=== PATIENT | female | born 1935 | race Caucasian/White ===

== ENCOUNTER 2018-05-24 18:38 | Emergency (ER) | payer MEDICARE, BC ==
[2018-05-24] MEDS ORDERED: Ibuprofen TAB* 400 MG PO ONE (18:45)
[2018-05-24 18:49] VITALS: BP 144/70
--- NOTE | 2018-05-24 18:50 | UC ---
Lower Extremity/Ankle HPI - HPI Summary HPI Summary: 83-year-old woman comes in today with a chief complaint of right foot and ankle pain. Bladder arrival today she tripped and fell. She injured her ankle and right foot laterally at the time. She has been able to walk on it however the pain has been getting worse. Pain is worse with ambulation. Better with rest. - History of Current Complaint Stated Complaint: R FOOT INJURY Time Seen by Provider: 05/24/18 18:45 - Allergies/Home Medications Allergies/Adverse Reactions: Allergies Allergy/AdvReac Type Severity Reaction Status Date / Time No Known Allergies Allergy Verified 05/24/18 18:49 Home Medications: Home Medications Ibuprofen TAB* [Motrin TAB* 400 MG] 400 mg PO DAILY 05/24/18 [History Confirmed 05/24/18] SUMAtriptan succinate [Sumatriptan Succinate] 50 mg PO DAILY 05/24/18 [History Confirmed 05/24/18] Sertraline* [Zoloft*] 100 mg PO DAILY 05/24/18 [History Confirmed 05/24/18] PMH/Surg Hx/FS Hx/Imm Hx Previously Healthy: Yes - Surgical History Surgical History: Yes Surgery Procedure, Year, and Place: BENIGN CYST REMOVED FROM BREAST. LT LEG SURGERY - Family History Known Family History: Positive: Non-Contributory Review of Systems All Other Systems Reviewed And Are Negative: Yes Constitutional: Positive: Negative Skin: Positive: Negative Eyes: Positive: Negative ENT: Positive: Negative Respiratory: Positive: Negative Cardiovascular: Positive: Negative Gastrointestinal: Positive: Negative Motor: Positive: Negative Neurovascular: Positive: Negative Musculoskeletal: Positive: Other: - SEE HPI Neurological: Positive: Negative Psychological: Positive: Negative Is Patient Immunocompromised?: No Physical Exam Triage Information Reviewed: Yes Appearance: Well-Appearing, No Pain Distress, Well-Nourished Vital Signs Reviewed: Yes Eye Exam: Normal Eyes: Positive: Conjunctiva Clear Neck exam: Normal Neck: Positive: Supple Respiratory: Positive: No respiratory distress Musculoskeletal: Positive: Other: - Patient has some swelling and tenderness to palpation over the right lateral malleolus and right metatarsal. She has good range of motion Achilles tendon is intact is no skin break. Normal capillary refill. No sensation deficit. No knee pain or proximal leg pain. Neurological Exam: Normal Neurological: Positive: Alert, Muscle Tone Normal Psychological Exam: Normal Psychological: Positive: Age Appropriate Behavior Skin Exam: Normal Lower Extremity Course/Dx - Course Course Of Treatment: I discussed the x-rays with the patient. I did not see any acute fracture on the foot or ankle x-ray. On the foot oblique view there is a bone fragment which appears to be well-corticated on the lateral aspect of the midfoot. I do not believe this represents an acute fracture however radiologist reading is pending. Patient was placed in a postop shoe by nursing and she was neurovascularly intact after placement of the postop shoe. Patient felt much more comfortable using the postop shoe for ambulation. Plan is anti- inflammatories eyes rest and follow-up with her primary care doctor if not completely improved. If the radiologist reading indicates there is a fracture patient will be contacted and she will follow-up with orthopedics. - Differential Dx/Diagnosis Provider Diagnosis: Sprain of right foot Discharge - Sign-Out/Discharge Documenting (check all that apply): Patient Departure All imaging exams completed and their final reports reviewed: No - Discharge Plan Condition: Stable Disposition: HOME Patient Education Materials: Foot Sprain (ED) Referrals: Kristen Raymond MD [Primary Care Provider] - Gilberto Desai MD [Medical Doctor] - Additional Instructions: FOLLOW UP WITH YOUR DOCTOR IF NOT COMPLETELY IMPROVED. IF THE RADIOLOGIST SEES A FRACTURE, FOLLOW UP WITH ORTHOPEDICS. GET REEVALUATED SOONER IF YOUR CONDITION WORSENS OR ANY QUESTIONS OR CONCERNS. - Billing Disposition and Condition Condition: STABLE Disposition: Home
--- NOTE | 2018-05-25 09:18 | UC ---
- Progress Note Progress Note: X-rays of the foot and ankle were read as negative. Because the patient was waiting for this reading then we will call and advised her of the negative result. Course/Dx - Diagnoses Provider Diagnoses: Sprain of right foot Discharge - Sign-Out/Discharge Documenting (check all that apply): Patient Departure All imaging exams completed and their final reports reviewed: Yes - Discharge Plan Condition: Stable Disposition: HOME Patient Education Materials: Foot Sprain (ED) Referrals: Kristen Raymond MD [Primary Care Provider] - Gilberto Desai MD [Medical Doctor] - Additional Instructions: FOLLOW UP WITH YOUR DOCTOR IF NOT COMPLETELY IMPROVED. IF THE RADIOLOGIST SEES A FRACTURE, FOLLOW UP WITH ORTHOPEDICS. GET REEVALUATED SOONER IF YOUR CONDITION WORSENS OR ANY QUESTIONS OR CONCERNS. - Billing Disposition and Condition Condition: STABLE Disposition: Home
== END 2018-05-24 19:55 | disposition home or self-care (01) ==
LOC: UCEAST 18:38
DX: S93.601A Unspecified sprain of right foot, initial encounter (principal); W01.0XXA Fall on same level from slipping, tripping and stumbling without subsequent striking against object, initial encounter
CPT/HCPCS: 99213; A9270-GY; G0463

== ENCOUNTER 2019-05-08 05:54 | Day surgery (SDC) | payer MEDICARE, BC ==
[~2019-05-08 05:54] MED LIST: Buffered Lidocaine 1% SYRIN* 1 ML/SYRINGE INTRADERM ONE
[2019-05-08] MEDS ORDERED: Famotidine IV* 10 MG/ML 2 ML (20 mg) IV SLOW PU ONE (06:00)
[2019-05-08] MEDS ORDERED: Lactated Ringers 1000 ML Bag* 1,000 ML IV SCH (06:00)
[2019-05-08] MEDS ORDERED: celeCOXIB CAP* 200 MG PO ONE (06:00)
[2019-05-08] MEDS ORDERED: Acetaminophen TAB* 325 MG PO ONE (06:00)
[2019-05-08] MEDS ORDERED: ceFAZolin 2 GM PREMIX in ORs 2 GM/50 ML BAG ONE (06:48)
[2019-05-08] MEDS ORDERED: Famotidine IV* 10 MG/ML 2 ML (20 mg) ONE (06:48)
[2019-05-08] MEDS ORDERED: Lidocaine 1% INJ* 10 MG/ML 30 ML SDV ONE (07:14)
[2019-05-08] MEDS ORDERED: Bupivacaine 0.5%* 50 ML MDV VIAL ONE (07:15)
[2019-05-08] MEDS ORDERED: Lidocaine 1% w EPI 1:200,000* SDV 30 ML VIAL ONE ×2 (07:16→07:17)
[2019-05-08] MEDS ORDERED: Midazolam* 1 MG/ML 2 ML VIAL (2 MG) ONE (07:28)
[2019-05-08] MEDS ORDERED: Lidocaine 2% PF * 5 ML VIAL ONE (07:49)
[2019-05-08] MEDS ORDERED: Ondansetron INJ* 2 MG/ML VIAL ONE (07:49)
[2019-05-08] MEDS ORDERED: Ketorolac INJ* 30 MG/ML 1 ML VIAL ONE (07:49)
[2019-05-08] MEDS ORDERED: Propofol* 10 MG/ML 20 ML BTL ONE (07:49)
[2019-05-08] MEDS ORDERED: fentaNYL* 50 MCG/ML 2 ML VIAL (100 MCG VIAL) ONE (07:53)
[2019-05-08] MEDS ORDERED: Acetaminophen TAB* 325 MG PO PRN (08:23)
[2019-05-08] MEDS ORDERED: DiMENhydriNATE IV* 50 MG/ML VIAL IV PUSH PRN (08:23)
[2019-05-08 09:07] VITALS: BP 132/65
--- NOTE | 2019-05-08 13:24 | OP ---
CC: [facility]; Dr. Kristen Raymond * DATE OF OPERATION: 05/08/19 - [facility] DATE OF : 35 SURGEON: Sara Lazaro MD. STORY TELLER: FRANCK Guzman. PRE-OP DIAGNOSIS: Left breast abnormality. POST-OP DIAGNOSIS: Left breast abnormality. OPERATIVE PROCEDURE: Excision of left breast abnormality. INDICATIONS: Ms. Garcia is an 84-year-old woman who had a possible change in an area of breast thickening prompting the plan for biopsy. Needle biopsies showed atypia prompting the plan for surgical excision. DESCRIPTION OF PROCEDURE: She was brought to the operating room, placed on the OR table in the supine position and given IV sedation. The left breast was prepped and draped in the usual sterile fashion. After infiltrating with local anesthetic, a curvilinear incision was made over the mass and subcutaneous tissue was divided with electrocautery to excise the mass. Once it was out of the breast, it was marked in the usual fashion and handed off as a specimen. Hemostasis was assured with electrocautery. The wound was irrigated with saline and clips were placed in the cavity to helen its confines. Additional local was instilled into the wound and then closure was accomplished with 3-0 Vicryl in the subcutaneous layer and the skin was closed with 4-0 Prolene in the subcuticular fashion. Steri-Strips and a dry sterile dressing were applied. All sponge and instrument counts were correct. The patient tolerated the procedure well and was transferred to Recovery in a stable condition. [id number]/CPS #: [id number] [facility]
== END 2019-05-08 09:50 | disposition home or self-care (01) ==
LOC: OR 05:54
PROVIDERS: ATTEND Surgery
DX: C50.912 Malignant neoplasm of unspecified site of left female breast (principal); M19.011 Primary osteoarthritis, right shoulder; Z17.0 Estrogen receptor positive status [ER+]; Z91.018 Allergy to other foods; Z98.890 Other specified postprocedural states
CPT/HCPCS: 88307; 88360; J0690; J1885; J2001; J2250; J2405; J2704; J3010; J3490

== ENCOUNTER 2022-09-06 11:45 | Observation (INO) ==
[2022-09-06] MEDS ORDERED: Heparin 5000 UNITS/ML 1 mL VIAL SUBCUT ONE ×2 (20:03→20:13)
[2022-09-06 21:41] LABS: INR 1.19 (0.88-1.18)
[2022-09-07 05:59] LABS: ABS Eosinophils 0.1 10^3/uL (0.0-0.5); ABS Monocytes 0.7 10^3/uL (0.0-0.9); ABS Neutrophils 4.1 10^3/uL (1.5-7.6); ABS Nucleated RBC 0.01 10^3/ul; Hematocrit 34.3 % (35-45); Hemoglobin 11.9 g/dL (11.5-14.3); Lymphocyte % 16.7 %; Mean Corpuscular Hemoglobin 31.2 pg (27-33); Mean Corpuscular Hgb Conc 34.6 g/dL (31-36); Mean Corpuscular Volume 90.1 fL (80-97); Mean Platelet Volume 7.3 fL (7.5-11.2); Nucleated Red Blood Cells % 0.1 /100 WBC (0.0-0.4); Platelet Count 142 10^3/uL (150-450); Red Blood Count 3.81 10^6/uL (3.63-4.92); Red Cell Distribution Width 13.2 % (12-17); White Blood Count 5.9 10^3/uL (3.8-11.8)
[2022-09-07 06:22] LABS: Calcium 8.6 mg/dL (8.6-10.3); Creatinine, Serum 0.93 mg/dL (0.51-0.95); Magnesium 1.8 mg/dL (1.9-2.7); Potassium 3.9 mmol/L (3.5-5.0); eGFR CKD-EPI 59.5 (>60)
[2022-09-07] MEDS ORDERED: Magnesium Sulfate 2 gm BAG 2 GM/50 ML BAG IVPB ONE (08:22)
[2022-09-07] MEDS ORDERED: Cholecalciferol (VIT D3) 1,000 unit TAB PO SCH (09:00)
[2022-09-07 14:41] VITALS: BP 122/67
== END 2022-09-07 15:45 | disposition home or self-care (01) ==
LOC: ED 11:45 → SUATTDRO 20:00 → EDHOLD 20:00 → INTOOBSV 20:00 → SSU 22:27
PROVIDERS: ADMIT Student in an Organized Health Care Education/Training Program; ATTEND Hospitalist